=== PATIENT | female | born 1940 | race Caucasian/White ===

== ENCOUNTER 2020-05-04 19:30 | Emergency (ER) | payer MEDICARE ==
[~2020-05-04] VITALS: Ht 167.6 cm; Wt 65.9 kg
--- NOTE | 2020-05-04 19:50 | PHYS DOC ---
Past History Past Medical History: A-Fib, Anxiety, Arthritis, Heart Disease, Other Past Medical History Vertigo Past Surgical History: Lumbar Laminectomy General Adult EDM: Chief Complaint: DIZZY/LIGHT HEADED HPI: HPI: ".. I had some dizzy .. I have vertigo.. all the time.. this just seemed different tonight... seem to have some 'prickle' like feeling around this Lt. eye...".." I just want to come in and get checked out..."..." I ve had some health issues.. mainly the my back.. and eventually had complete lumbar and sacral fusion.. at [facility].. I ve had Afib.. in the past..they only keep me on Aspirin.. because risk of fall.. you see I got weakness in this Rt. leg.. from the back thing.. so I have to use a cane.. I ve been doing the physical therapy with my Vertigo..now mainly at home..." Patient is a 80 year old female who presents with above hx and complaints of dizzy, vertigo that is somewhat similar to prior episodes. Pt. denies any other neuro changes, except prickle feeling around Lt. eye. Pt. states symptoms have been present since 3:00 yesterday morning. Patient denies any changes in medications. No recent travel outside the [place] area. No history of specific ill contacts. No history of recent falls. Patient has a chronic history of vertigo, lumbar sacral neuropathy, gait disorder, A. fib, arthritis, history of coronary artery disease. The patient follows with Dr. Clay Review of Systems: Review of Systems: Constitutional: Denies fever or chills Eyes: Denies change in visual acuity HENT: Denies nasal congestion or sore throat Respiratory: Denies cough or shortness of breath Cardiovascular: Denies chest pain or edema GI: Denies abdominal pain, nausea, vomiting, bloody stools or diarrhea : Denies dysuria Musculoskeletal: Denies back pain or joint pain Integument: Denies rash Neurologic: Denies headache, focal weakness or sensory changes . Complains of increased vertigo and " prickle" sensation around Lt. eye since 0300 am Endocrine: Denies polyuria or polydipsia Lymphatic: Denies swollen glands Psychiatric: Denies depression or anxiety Family History: Family History: Noncontributory presentation Current Medications: Current Meds: See nursing for home meds Allergies: Allergies: No known drug allergies Physical Exam: PE: Constitutional: no acute distress, non-toxic appearance. [] HENT: Normocephalic, atraumatic, bilateral external ears normal, oropharynx moist, no oral exudates, nose normal. [] Eyes: PERRLA, EOMI, conjunctiva normal, no discharge. [] Neck: Normal range of motion, no tenderness, supple, no stridor. [] Cardiovascular:Heart rate regular rhythm, no murmur, PMI to the left Lungs & Thorax: Bilateral breath sounds clear to auscultation [] Abdomen: Bowel sounds normal, soft, no tenderness, no masses, no pulsatile m asses. Old surgery scar] Skin: Warm, dry, no erythema, no rash. Poor turgor Back: No tenderness, no CVA tenderness. Lumbar sacral scar Extremities: No tenderness, no cyanosis, no clubbing, ROM intact, no edema. [] Atrophy of muscle groups right thigh Neurologic: Alert and oriented X 3, normal motor function, normal sensory function, no focal deficits noted. [] DTRs +2 at patella and brachial. 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 Right-hand dominant. Distal vibratory 128 intact. Does wear bilateral hearing aids air conduction more than bone conduction some lateralization to the right. Patient walks with a cane for stability. Psychologic: Affect anxious , judgement normal, mood normal. [] EKG: EKG: My interpretation EKG shows a sinus rhythm at 65 bpm. No acute morphology [] Radiology/Procedures: Radiology/Procedures: [address] [address] IMAGING REPORT Signed PATIENT: SAMIRA FELIZ ACCOUNT: [id number] : 1940 LOCATION: ER AGE: 80 SEX: F EXAM STATUS: REG ER ORD. PHYSICIAN: TREE VASQUEZ MD REASON: prickle Lt eye, dizzy, vertigo- different PROCEDURE: CT HEAD WO CONTRAST CT head without contrast dated 05/04/2020. No comparison available. CLINICAL INDICATION: Left pain and dizziness with vertigo. TECHNIQUE: Contiguous axial imaging of the head was performed from skull base to vertex. No contrast administered. One or more of the following individualized dose reduction techniques were utilized for this examination: 1. Automated exposure control 2. Adjustment of the mA and/or kV according to patient size 3. Use of iterative reconstruction technique. FINDINGS: Ventricles and sulci are mildly prominent for age. No midline shift or mass effect. Brain parenchyma is of normal attenuation. No hemorrhage or extra-axial collection. Posterior fossa and brainstem unremarkable. There is some atherosclerotic calcifications of the parasellar carotid arteries and right vertebral artery. Visualized paranasal sinuses and mastoid air cells are clear. No apparent calvarial abnormality. IMPRESSION: No evidence of acute intracranial abnormality. Electronically signed by: Yared Reina MD (05/04/2020 8:30 PM) [facility]US[facility] DICTATED AND SIGNED BY: YARED REINA MD DATE: 05/04/202029 CC: TREE VASQUEZ MD; SHARRI SANDY [][place] [address] IMAGING REPORT Signed PATIENT: SAMIRA FELIZ ACCOUNT: [id number] : 1940 LOCATION: ER AGE: 80 SEX: F EXAM STATUS: REG ER ORD. PHYSICIAN: TREE VASQUEZ MD REASON: dyspnea, afib, ms change PROCEDURE: CHEST PA & LATERAL Two-view chest dated 05/04/2020. Comparison made to 04/14/2010 CLINICAL INDICATION: Dyspnea. FINDINGS: PA and lateral views obtained. Heart and mediastinal contours are stable. Lungs are clear. No consolidation or pleural effusion. No pneumothorax. There are a few scattered calcified granuloma. IMPRESSION: No acute radiographic abnormality. Electronically signed by: Yared Reina MD (05/04/2020 9:29 PM) [facility] DICTATED AND SIGNED BY: YARED REINA MD DATE: 05/04/202128 CC: TREE VASQUEZ MD; SHARRI SANDY Heart Score: Risk Factors: Risk Factors: DM, Current or recent (<one month) smoker, HTN, HLP, family history of CAD, obesity. Risk Scores: Score 0 - 3: 2.5% MACE over next 6 weeks - Discharge Home Score 4 - 6: 20.3% MACE over next 6 weeks - Admit for Clinical Observation Score 7 - 10: 72.7% MACE over next 6 weeks - Early Invasive Strategies Course & Med Decision Making: Course & Med Decision Making Pertinent Labs and Imaging studies reviewed. (See chart for details) Stay with someone to check on your well being tonight. Take meds as previously directed.. Return if any concerns. Follow up with Dr. Hyman and review ED work up. 1. Exacerbation of Vertigo symptoms [] Dragon Disclaimer: Dragon Disclaimer: This electronic medical record was generated, in whole or in part, using a voice recognition dictation system. Departure Departure: Referrals: SHARRI SANDY (PCP) TREE VASQUEZ MD May 04, 2020 19:50
--- NOTE | 2020-05-04 20:33 | RAD ---
CT head without contrast dated 05/04/2020. No comparison available. CLINICAL INDICATION: Left pain and dizziness with vertigo. TECHNIQUE: Contiguous axial imaging of the head was performed from skull base to vertex. No contrast administered. One or more of the following individualized dose reduction techniques were utilized for this examination: 1. Automated exposure control 2. Adjustment of the mA and/or kV according to patient size 3. Use of iterative reconstruction technique. FINDINGS: Ventricles and sulci are mildly prominent for age. No midline shift or mass effect. Brain parenchyma is of normal attenuation. No hemorrhage or extra-axial collection. Posterior fossa and brainstem unremarkable. There is some atherosclerotic calcifications of the parasellar carotid arteries and right vertebral artery. Visualized paranasal sinuses and mastoid air cells are clear. No apparent calvarial abnormality. IMPRESSION: No evidence of acute intracranial abnormality. Electronically signed by: Yared Reina MD (05/04/2020 8:30 PM) HOLLY
--- NOTE | 2020-05-04 20:49 | EKG ---
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
[2020-05-04 21:09] LABS: CALCIUM 9.5 mg/dL (8.5-10.1); CREATININE 1.1 mg/dL (0.6-1.0); POTASSIUM 3.5 mmol/L (3.5-5.1)
[2020-05-04 21:11] LABS: BASO % 0 % (0-3); EOS # 0.1 x10^3/uL (0.0-0.7); EOS % 2 % (0-3); HEMATOCRIT 42.2 % (36.0-47.0); HEMOGLOBIN 13.9 g/dL (12.0-15.5); LYMPH # 1.7 x10^3/uL (1.0-4.8); LYMPH % 31 % (24-48); MEAN CORPUSCULAR HEMOGLOBIN 31 pg (25-35); MEAN CORPUSCULAR HGB CONC 33 g/dL (31-37); MEAN CORPUSCULAR VOLUME 94 fL (79-100); MONO # 0.5 x10^3/uL (0.0-1.1); MONO % 9 % (0-9); NEUT # 3.3 x10^3uL (1.8-7.7); NEUT % 59 % (31-73); PLATELET COUNT 250 x10^3/uL (140-400); RED BLOOD COUNT 4.47 x10^6/uL (3.50-5.40); RED CELL DISTRIBUTION WIDTH 14.9 % (11.5-14.5); WHITE BLOOD COUNT 5.5 x10^3/uL (4.0-11.0)
[2020-05-04 21:17] LABS: BARBITURATES NEG (NEG); BENZODIAZEPINES NEG (NEG); CANNABINOIDS NEG (NEG); COCAINE NEG (NEG); METHADONE NEG (NEG); OPIATES NEG (NEG); PHENCYCLIDINE NEG (NEG)
[2020-05-04 21:21] LABS: AMPHETAMINE/METHAMPHETAMINE NEG (NEG)
[2020-05-04 21:31] LABS: BACTERIA,URINE 0 /HPF (0-FEW); BILIRUBIN,URINE NEG (NEG); CLARITY,URINE CLEAR; COLOR,URINE YELLOW; GLUCOSE,URINE NEG (NEG); NITRITE,URINE NEG (NEG); RBC,URINE 0 /HPF (0-2); SQUAMOUS EPITHELIAL CELL,UR FEW /LPF; UROBILINOGEN,URINE 0.2 mg/dL (0.2 mg/dL)
--- NOTE | 2020-05-04 21:31 | RAD ---
Two-view chest dated 05/04/2020. Comparison made to 04/14/2010 CLINICAL INDICATION: Dyspnea. FINDINGS: PA and lateral views obtained. Heart and mediastinal contours are stable. Lungs are clear. No consolidation or pleural effusion. No pneumothorax. There are a few scattered calcified granuloma. IMPRESSION: No acute radiographic abnormality. Electronically signed by: Yared Reina MD (05/04/2020 9:29 PM) MEGHAN
[2020-05-04 22:02] VITALS: BP 116/62
== END 2020-05-04 22:04 | disposition home or self-care (01) ==
LOC: ER 19:30
DX: R42 Dizziness and giddiness (principal); I48.91 Unspecified atrial fibrillation; F41.9 Anxiety disorder, unspecified; M19.90 Unspecified osteoarthritis, unspecified site
CPT/HCPCS: 36415; 70450; 71046; 80048; 80307; 81001; 82550; 83735; 83880; 84484; 85025; 85610; 85730; 86140; 93005; 99285-25

== ENCOUNTER 2020-11-15 11:37 | Inpatient (IN) | payer MEDICARE ==
[~2020-11-15] VITALS: Ht 170.2 cm; Wt 82.3 kg
[2020-11-15] MEDS ORDERED: ONDANSETRON PF 4 MG/2 ML VIAL. ONE (11:59)
--- NOTE | 2020-11-15 12:26 | PHYS DOC ---
Past History Past Medical History: A-Fib, Anxiety, Arthritis, Heart Disease, Other Additional Past Medical Histor: Nerver, vertigo (PITA KEN APRN) Past Surgical History: Lumbar Laminectomy Additional Past Surgical Histo: Back fussions (PITA KEN APRN) Alcohol Use: None (PITA EKN APRN) General Adult EDM: Chief Complaint: FEVER HPI: HPI: Patient is a 80-year-old female presents with fever, nausea and vomiting. Patient states that she was seen by her physician on for a urinary tract infection and placed on Bactrim. Patient reports that she started vomiting Tuesday afternoon and has not been able to keep down her medications. Patient reports running 102 fever prior to arrival to the emergency room and took Tylenol. Patient still having burning with urination but states she has only been able to take 1 Bactrim due to vomiting. Denies diarrhea, shortness of breath, chest pain. (PITA KEN APRN) Review of Systems: Review of Systems: Constitutional: Reports fever and chills Eyes: Denies change in visual acuity HENT: Denies nasal congestion or sore throat Respiratory: Denies cough or shortness of breath Cardiovascular: Denies chest pain or edema GI: Denies abdominal pain, diarrhea. Reports nausea and vomiting. : Denies dysuria Musculoskeletal: Denies back pain or joint pain Integument: Denies rash Neurologic: Reports headache.denies focal weakness or sensory changes Endocrine: Denies polyuria or polydipsia Lymphatic: Denies swollen glands Psychiatric: Denies depression or anxiety (PITA KEN APRN) Current Medications: Current Meds: Current Medications Medications (Trade) Dose Ordered Sig/Anisa Start Time Stop Time Status Last Admin Dose Admin Ondansetron HCl (Zofran) 4 mg 1X ONCE 11/15/20 12:30 11/15/20 12:31 UNV 11/15/20 12:20 4 MG Sodium Chloride 1,000 ml @ 1,000 mls/hr 1X ONCE 11/15/20 12:30 11/15/20 13:29 UNV 11/15/20 12:20 1,000 MLS/HR (PITA KEN APRN) Allergies: Allergies: Allergies Coded Allergies Type Severity Reaction Last Updated Verified No Known Drug Allergies 05/04/20 No (PITA KEN APRN) Physical Exam: PE: Constitutional: Well developed, well nourished, no acute distress, non-toxic appearance. [] HENT: Normocephalic, atraumatic, bilateral external ears normal, oropharynx moist, no oral exudates, nose normal. [] Eyes: PERRLA, EOMI, conjunctiva normal, no discharge. [] Neck: Normal range of motion, no tenderness, supple, no stridor. [] Cardiovascular:Heart rate regular rhythm, no murmur [] Lungs & Thorax: Bilateral breath sounds clear to auscultation [] Abdomen: Bowel sounds normal, soft, no tenderness, no masses, no pulsatile masses. [] Skin: Warm, dry, no erythema, no rash. [] Back: No tenderness, no CVA tenderness. [] Extremities: No tenderness, no cyanosis, no clubbing, ROM intact, no edema. [] Neurologic: Alert and oriented X 3, normal motor function, normal sensory function, no focal deficits noted. [] Psychologic: Affect normal, judgement normal, mood normal. [] (PITA KEN APRN) Current Patient Data: Vital Signs: Vital Signs Date Time Temp Pulse Resp B/P (MAP) Pulse Ox O2 Delivery O2 Flow Rate FiO2 11/15/20 11:37 98.9 67 30 74/49 (57) 97 Room Air (PITA KEN APRN) EKG: EKG: [] Sinus rhythm. Heart rate 69 bpm minute. (PITA KEN APRN) Radiology/Procedures: Radiology/Procedures: []CT head without contrast PQRS statement: CT scans at this facility use dose reduction including either automated exposure control, iterative reconstructions, and /or weight based radiation dosing via mA and kV modification when appropriate to reduce radiation dose to as low as reasonably achievable. HISTORY: Hypotension. No other clinical history provided. COMPARISON: CT head May 04, 2020. FINDINGS: Mild generalized brain atrophy with prominence of the ventricles and sulci is stable. No intracranial hemorrhage, mass, hydrocephalus, extra-axial fluid collections or infarction. Density from calcified plaque right vertebral artery stable. Orbits, mastoids and bones are unremarkable. IMPRESSION: No acute abnormality. Stable exam. Electronically signed by: Dominick Shafer MD (11/15/2020 4:29 PM) [id number] (PITA KEN APRN) Heart Score: C/O Chest Pain: No Risk Factors: Risk Factors: DM, Current or recent (<one month) smoker, HTN, HLP, family history of CAD, obesity. Risk Scores: Score 0 - 3: 2.5% MACE over next 6 weeks - Discharge Home Score 4 - 6: 20.3% MACE over next 6 weeks - Admit for Clinical Observation Score 7 - 10: 72.7% MACE over next 6 weeks - Early Invasive Strategies (PITA KEN APRN) Course & Med Decision Making: Course & Med Decision Making Pertinent Labs and Imaging studies reviewed. (See chart for details) [] 80-year-old female presents with fever, nausea and vomiting, headache since Tuesday. Patient was seen by her PCP on and treated with Bactrim for a UTI. Patient states she is only able to take 1 dose of her antibiotics due to vomiting. Patient given normal saline bolus, Zofran and Toradol in the emerge ncy room for fever and nausea. Urine was positive for leuks and WBCs. Troponin is negative. Lactic is 1.1. WBC is 7.7. Patient's creatinine is elevated at 1.7. Patient given second liter of normal saline bolus. Patient's blood pressure dropped down into the 60s. Patient given third liter of fluids. Patient's blood pressure has maintained in the 90s. Patient given Rocephin to treat infection. CT of head was ordered which was negative. Chest x-ray ordered but waiting on results. Spoke with Dr. Souza about accepting patient at [facility] and is willing to accept patient. Patient is alert and oriented and is okay with admission plan. (PITA KEN APRN) Course & Med Decision Making I oversaw on the above date of service of this patient and discussed the care with the HAND SANDER. I personally saw patient and repeated certain aspects of history and physical examination. She is not safe for discharge home, MAP >65 but remains hypotensive and unstable on feet. Will require hospital admission for continued inpatient medical management. I agree with the findings, plan of care, and disposition as documented. Electronically signed, Esha Rich DO (ESHA RICH DO) Roseline Disclaimer: Roseline Disclaimer: This electronic medical record was generated, in whole or in part, using a voice recognition dictation system. (PITA KEN APRN) Departure Departure: Impression: Primary Impression: Urinary tract infection Qualified Codes: N30.00 - Acute cystitis without hematuria Disposition: HOME / SELF CARE / HOMELESS Admitting Physician: Erasmo Souza (ESHA RICH DO) Condition: STABLE Referrals: SHARRI SANDY (PCP) Patient Instructions: Urinary Tract Infection PITA KEN APRN November 15, 2020 12:26 ESHA RICH DO November 16, 2020 15:45
[2020-11-15] MEDS ORDERED: KETOROLAC 15 MG/ML VIAL. IVP ONE (12:30)
[2020-11-15] MEDS ORDERED: IV NORMAL SALINE 1,000ML 1,000 ML IV ONE ×2 (12:30→13:00)
[2020-11-15] MEDS ORDERED: ONDANSETRON PF 4 MG/2 ML VIAL. IVP ONE (12:30)
[2020-11-15 12:37] LABS: BASO % 0 % (0-3); CALCIUM 8.7 mg/dL (8.5-10.1); CREATININE 1.7 mg/dL (0.6-1.0); EOS # 0.1 x10^3/uL (0.0-0.7); EOS % 2 % (0-3); GFR 29.1; HEMATOCRIT 37.1 % (36.0-47.0); HEMOGLOBIN 12.6 g/dL (12.0-15.5); LYMPH # 0.3 x10^3/uL (1.0-4.8); LYMPH % 4 % (24-48); MEAN CORPUSCULAR HEMOGLOBIN 31 pg (25-35); MEAN CORPUSCULAR HGB CONC 34 g/dL (31-37); MEAN CORPUSCULAR VOLUME 92 fL (79-100); MONO # 0.5 x10^3/uL (0.0-1.1); MONO % 6 % (0-9); NEUT # 6.7 x10^3uL (1.8-7.7); NEUT % 88 % (31-73); PLATELET COUNT 184 x10^3/uL (140-400); POTASSIUM 3.4 mmol/L (3.5-5.1); RED BLOOD COUNT 4.02 x10^6/uL (3.50-5.40); RED CELL DISTRIBUTION WIDTH 15.5 % (11.5-14.5); WHITE BLOOD COUNT 7.7 x10^3/uL (4.0-11.0)
--- NOTE | 2020-11-15 12:39 | EKG ---
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
[2020-11-15 12:43] LABS: ALBUMIN 3.6 g/dL (3.4-5.0); ALBUMIN/GLOBULIN RATIO 1.2 (1.0-1.7); TOTAL BILIRUBIN 0.8 mg/dL (0.2-1.0); TOTAL PROTEIN 6.5 g/dL (6.4-8.2)
[2020-11-15 12:46] LABS: BILIRUBIN,URINE NEG (NEG); CLARITY,URINE CLEAR; COLOR,URINE YELLOW; GLUCOSE,URINE NEG (NEG)
[2020-11-15 12:47] LABS: NITRITE,URINE NEG (NEG); UROBILINOGEN,URINE 0.2 mg/dL (0.2 mg/dL)
[2020-11-15 12:48] LABS: BACTERIA,URINE FEW /HPF (0-FEW); SQUAMOUS EPITHELIAL CELL,UR FEW /LPF
--- NOTE | 2020-11-15 16:31 | RAD ---
CT head without contrast PQRS statement: CT scans at this facility use dose reduction including either automated exposure cont rol, iterative reconstructions, and /or weight based radiation dosing via mA and kV modification when appropriate to reduce radiation dose to as low as reasonably achievable. HISTORY: Hypotension. No other clinical history provided. COMPARISON: CT head May 04, 2020. FINDINGS: Mild generalized brain atrophy with prominence of the ventricles and sulci is stable. No in tracranial hemorrhage, mass, hydrocephalus, extra-axial fluid collections or infarction. Density from calcified plaque right vertebral artery stable. Orbits, mastoids and bones are unremarkable. IMPRESSION: No acute abnormality. Stable exam. Electronically signed by: Dominick Shafer MD (11/15/2020 4:29 PM) [id number]
[2020-11-15] MEDS ORDERED: IV NORMAL SALINE 50ML 50 ML ONE (16:48)
[2020-11-15] MEDS ORDERED: cefTRIAXone SODIUM 1 GM VIAL ONE (16:48)
--- NOTE | 2020-11-15 18:19 | RAD ---
XR CHEST 1V Clinical Indication: Reason: hypotension / Spl. Instructions: / History: Comparison: Two-view chest May 04, 2020. Findings: The cardiomediastinal silhouette is normal. Lungs are clear. There is no pneumothorax. No pleural eff usion is appreciated. There is advanced arthropathy of the shoulders. Degenerative endplate spurring of the thoracic spine. IMPRESSION: No acute cardiopulmonary process. Electronically signed by: Seven Alvarez MD (11/15/2020 6:17 PM) [facility]
--- NOTE | 2020-11-15 19:27 | NUR ---
The patient, SAMIRA FELIZ, 80 y/o, F admitted by QUAN WATERMAN MD, to room 107, was given written information regarding hospital policies, unit procedures and contact persons. Valuables were checked and left with the patient.
[2020-11-15 20:45] VITALS: BP 111/56
[2020-11-15] MEDS ORDERED: TRIA1TAB3 PO (20:55)
[2020-11-15] MEDS ORDERED: DILT180C30 PO (20:55)
[2020-11-15] MEDS ORDERED: GABA-586 (20:55)
[2020-11-15] MEDS ORDERED: ATOR20TA58 PO (20:55)
[2020-11-15] MEDS ORDERED: FOLI0.8T5 (20:55)
[2020-11-15] MEDS ORDERED: METH2.5T PO (20:55)
[2020-11-15] MEDS ORDERED: SERT-268 PO (20:55)
[2020-11-15] MEDS ORDERED: FLEC100T (20:55)
[2020-11-15] MEDS ORDERED: METF500T16 PO (20:55)
[2020-11-15] MEDS ORDERED: MELO15TA23 PO (20:55)
[2020-11-15] MEDS: IV NORMAL SALINE 1,000ML 1,000 ML IV SCH (22:15)
[2020-11-15] MEDS ORDERED: DEXTROSE 50% 25 GM / 50ML DISP.SYRIN. IV PRN (22:15)
[2020-11-15 23:53] VITALS: BP 106/61
[2020-11-16] MEDS ORDERED: FAMO10TA26 PO (00:26)
[2020-11-16] MEDS ORDERED: POLY17PO5 PO (00:26)
--- NOTE | 2020-11-16 02:09 | NUR ---
Pt states she lives at home alone. Her daughter lives next door and checks on her sometimes. Pt states she fell a week ago while in the laundry room, bumping her head because she felt "off balance" which is frequent. She uses a walker at times to feel more secure. She described waking up on the floor on Tuesday, thinking she was in her bed and realized that she had not done "any of the things I do before bedtime." She described having vivid "dreams or hallucinations," and does not remember anything that happened around that incident.
[2020-11-16] MEDS: IV NORMAL SALINE 1,000ML 1,000 ML IV SCH ×2 (04:55→12:35)
[2020-11-16 05:38] VITALS: BP 134/73
[2020-11-16] MEDS: INSULIN LISPRO 300 UNITS/3 ML VIAL. SQ SCH ×3 (08:00→17:00)
[2020-11-16 08:20] LABS: CREATININE 1.1 mg/dL (0.6-1.0); POTASSIUM 3.7 mmol/L (3.5-5.1)
[2020-11-16] MEDS: PANTOPRAZOLE IV 40 MG VIAL. IVP SCH (09:06)
[2020-11-16] MEDS: ONDANSETRON PF 4 MG/2 ML VIAL. IVP PRN ×2 (09:25→17:32)
[2020-11-16 11:11] VITALS: BP 145/77
[2020-11-16 15:54] VITALS: BP 144/62
--- NOTE | 2020-11-16 16:54 | HP ---
ADMIT DATE: 11/15/2020 HISTORY OF PRESENT ILLNESS: The patient is a 80-year-old female patient who presented to the Emergency Room with fever, nausea, and vomiting. She stated that she was seen by her primary care physician on for a urinary tract infection and was placed on Bactrim. She reported that she started vomiting on Tuesday and has not been able to keep down her medication. The patient reported running fever up to 102 Fahrenheit prior to arrival to the Emergency Room, for which she took Tylenol. She continued to have burning sensation with urination and stated that she has only been able to take 1 Bactrim due to vomiting. She denied any diarrhea, shortness of breath, or chest pain. She was extensively evaluated in the Emergency Room. Her white cell count was actually normal. Her chemistry showed that she was dehydrated with a BUN of 30, creatinine of 1.7. Urinalysis showed there was a small amount of leukocyte esterase. There were 11-20 wbc's and 1-2 rbc's and few bacteria. The patient was admitted with urinary tract infection, recurrent bouts of nausea, vomiting, and fever. She was started on IV ceftriaxone and was admitted for inpatient treatment. She is also dehydrated and continued on IV normal saline at 150 mL per hour. She did receive a total of 3 liters of fluid in the Emergency Room. PAST MEDICAL HISTORY: Significant for hypertension, hyperlipidemia, atrial fibrillation, rheumatoid arthritis, and type 2 diabetes mellitus. PAST SURGICAL HISTORY: Significant for tonsillectomy and adenoidectomy, tubal ligation. She has right foot bunion, right rotator cuff repair. She is status post cystocele, rectocele, and she underwent cataract extraction, spinal cord stimulator placement, L3-L4 laminectomy, right hip replacement. ALLERGIES: She has no known drug allergies. MEDICATIONS: She is currently on following medications: She is on methotrexate 10 mg weekly, flecainide 100 mg twice a day for atrial fibrillation, atorvastatin, calcium 20 mg at bedtime, diltiazem 180 mg daily. She is on meloxicam 15 mg daily, gabapentin 300 mg 3 times a day, sertraline 25 mg daily, triamterene/hydrochlorothiazide 37.5/25 one tablet once a day, polyethylene glycol 17 grams daily, famotidine 10 mg daily, metformin 500 mg twice a day, folic acid 0.8 mg daily. FAMILY HISTORY: She has 3 brothers, 1 with complications of ankylosing spondylitis. She has 2 brothers who are alive, one has kidney cancer that has resolved and one has generalized osteoarthritis. Her father at age of 81 because of lung and bladder cancer. Mother at age of 90 because of osteoarthritis, congestive heart failure, and colon cancer. SOCIAL HISTORY: She is , currently lives alone. Her daughter and son-in-law lives next door. She never smoked, drinks alcohol occasionally. Has not used any drugs. She used to be a [employer]. REVIEW OF SYSTEMS: As per history of present illness. PHYSICAL EXAMINATION: VITAL SIGNS: On arrival to the Emergency Room, her heart rate was 59, blood pressure was 100/50, temperature was 98, respiratory rate 20, and oxygen saturation was 99% on room air. HEENT: Examination of the head, eyes, ears, nose, and throat showed normocephalic, atraumatic. NECK: Supple. HEART: Showed normal first and second heart sound. No gallop, rub, or murmur. CHEST: Clear to auscultation, no crepitation or rhonchi. ABDOMEN: Distended, soft, nontender. NEUROLOGIC: She was grossly intact. LABORATORY DATA: Her lab work on admission showed white cell count of 7700, hemoglobin 12.6, hematocrit 37, MCV 92, and platelet count of 182,000 with normal manual differential. Her chemistry showed a serum sodium 140, potassium 3.4, chloride 103, bicarbonate 25, anion gap of 12, BUN 30, creatinine 1.7. Estimated GFR was 29 mL per minute. Her glucose 156, calcium was 8.7. Total bilirubin, AST, ALT, alkaline phosphatase normal. Her total protein was 6.5, albumin was 3.6. Urinalysis showed the urine was yellow, clear with a pH of 6, specific gravity of 1.020. The urine was negative for protein, glucose, ketones, trace of blood, negative for nitrite and there is small amount of leukocyte esterase. There were 1-2 rbc's, 11-20 wbc's, and very few bacteria. ASSESSMENT: Urinary tract infection with recurrent bouts of nausea and vomiting. The patient was started on IV fluid, IV ceftriaxone together with insulin sliding scale and IV Protonix. We will reconcile all her medications. I will hold the meloxicam as well as triamterene and we will continue with IV fluid, continue with IV antibiotic. We will monitor all her labs closely and adjust medication accordingly. YESSI/JERMAINE DR: Marsha TID: [id number]
[2020-11-16] MEDS: metFORMIN 500 MG TABLET PO SCH (17:20)
[2020-11-16 19:06] VITALS: BP 118/68
[2020-11-16] MEDS ORDERED: BENZOCAINE/MENTHOL LOZNGE 18'S BOX. PO PRN (20:45)
[2020-11-16] MEDS: FLECAINIDE 50 MG TABLET. PO SCH (21:00)
[2020-11-16] MEDS: ATORVASTATIN CALCIUM 20 MG TABLET PO SCH (21:18)
[2020-11-16] MEDS: LACTOBACILLUS RHAMNOSUS GG 1 CAPSULE. PO SCH (21:18)
[2020-11-16] MEDS: GABAPENTIN 300 MG CAPSULE. PO SCH (21:18)
[2020-11-16] MEDS: POLYVINYL ALCOHOL 1.4% OPHTH SOLUTION 15ML BOTTLE. OU PRN (21:19)
[2020-11-16 23:06] VITALS: BP 128/65
[2020-11-17] MEDS: IV NORMAL SALINE 1,000ML 1,000 ML IV SCH ×3 (00:20→21:36)
--- NOTE | 2020-11-17 00:51 | PN ---
DATE: 11/16/2020 SUBJECTIVE: The patient is resting slightly propped up in bed, in no apparent distress. She is feeling generally better. She has had no more nausea or vomiting. OBJECTIVE: GENERAL: She is afebrile when I examined her this afternoon. She looked well and was clearly in no apparent respiratory distress. No pallor, jaundice, cyanosis, or thyromegaly. No jugular venous distention. No limb edema. VITAL SIGNS: Her heart rate was 65, blood pressure was 145/77, temperature was 98.5, respiratory rate was 18 and oxygen saturation was 98% on room air. HEAD, EYES, EARS, NOSE AND THROAT: Normocephalic, atraumatic. NECK: Supple. HEART: Showed normal first and second heart sounds. No gallop or murmur. CHEST: Clear to auscultation, no crepitation or rhonchi. ABDOMEN: Distended, soft, nontender. NEUROLOGIC: She was grossly intact. LABORATORY DATA: Her lab work this morning showed her serum sodium was 144, potassium 3.7, chloride 111, bicarbonate 23, anion gap of 10, BUN 18 and creatinine 1.1, down from 30 and 1.7. Her glucose was 99, calcium was 8. Her white cell count was 7700, hemoglobin 13, hematocrit 37, MCV 92, platelet count of 184,000. ASSESSMENT: 1. Urinary tract infection with nausea and vomiting, resolving. 2. Acute kidney injury, resolving. 3. The patient is known to have rheumatoid arthritis. The patient is on methotrexate and meloxicam. 4. Atrial fibrillation, for which she is on Diltiazem and flecainide. 5. Hyperlipidemia, for which she is on atorvastatin. 6. Type 2 diabetes mellitus, for which is on metformin and insulin sliding scale. PLAN: Plan is to hold meloxicam as well as triamterene/hydrochlorothiazide and continue with all other medications and continue IV fluids. Continue with IV ceftriaxone. We will repeat her labs again tomorrow. Advance her diet as tolerated. KAVEH DR: Marsha TID: [id number]
[2020-11-17 05:21] VITALS: BP 129/71
--- NOTE | 2020-11-17 05:26 | NUR ---
Pt slept well throughout the night and states she feels better this am. X1 standby assist while getting up to bathroom. Pt uses walker and does well, but states that since her spinal surgery, she gets a little off balance at times, so staying with pt while up. Pt calls for assistance appropriately. Pt denies any dizziness when up. Status unchanged throughout the night.
[2020-11-17 06:27] LABS: BASO % 0 % (0-3); EOS # 0.3 x10^3/uL (0.0-0.7); EOS % 7 % (0-3); HEMATOCRIT 32.5 % (36.0-47.0); HEMOGLOBIN 10.9 g/dL (12.0-15.5); LYMPH # 0.9 x10^3/uL (1.0-4.8); LYMPH % 23 % (24-48); MEAN CORPUSCULAR HEMOGLOBIN 31 pg (25-35); MEAN CORPUSCULAR HGB CONC 34 g/dL (31-37); MEAN CORPUSCULAR VOLUME 93 fL (79-100); MONO # 0.4 x10^3/uL (0.0-1.1); MONO % 10 % (0-9); NEUT # 2.4 x10^3uL (1.8-7.7); NEUT % 60 % (31-73); PLATELET COUNT 172 x10^3/uL (140-400); RED BLOOD COUNT 3.49 x10^6/uL (3.50-5.40); RED CELL DISTRIBUTION WIDTH 15.7 % (11.5-14.5)
[2020-11-17] MEDS: INSULIN LISPRO 300 UNITS/3 ML VIAL. SQ SCH ×3 (08:00→17:00)
[2020-11-17] MEDS ORDERED: MELOXICAM 15 MG TABLET. PO SCH (09:00)
[2020-11-17] MEDS ORDERED: METHOTREXATE SODIUM 2.5 MG TABLET PO SCH (09:00)
[2020-11-17] MEDS: FLECAINIDE 50 MG TABLET. PO SCH ×2 (09:00→20:38)
[2020-11-17] MEDS ORDERED: TRIAMTERENE/HCTZ 37.5/25MG TABLET. PO SCH (09:00)
[2020-11-17] MEDS: LACTOBACILLUS RHAMNOSUS GG 1 CAPSULE. PO SCH ×2 (09:04→20:38)
[2020-11-17] MEDS: PANTOPRAZOLE IV 40 MG VIAL. IVP SCH (09:04)
[2020-11-17] MEDS: GABAPENTIN 300 MG CAPSULE. PO SCH ×3 (09:04→20:38)
[2020-11-17] MEDS: metFORMIN 500 MG TABLET PO SCH ×2 (09:05→17:10)
[2020-11-17] MEDS: SERTRALINE 25 MG TABLET. PO SCH (09:06)
[2020-11-17] MEDS: FAMOTIDINE 20 MG TABLET PO SCH (09:07)
[2020-11-17] MEDS: FOLIC ACID 1 MG TABLET PO SCH (09:07)
[2020-11-17] MEDS: POLYETHYLENE GLYCOL 3350 17 GM PACKET. PO SCH (09:08)
[2020-11-17 10:25] VITALS: BP 127/68
[2020-11-17 15:30] VITALS: BP 113/69
[2020-11-17] MEDS: POLYVINYL ALCOHOL 1.4% OPHTH SOLUTION 15ML BOTTLE. OU PRN (17:10)
[2020-11-17 19:46] VITALS: BP 128/71
[2020-11-17] MEDS: ATORVASTATIN CALCIUM 20 MG TABLET PO SCH (20:38)
[2020-11-17 22:50] VITALS: BP 130/63
--- NOTE | 2020-11-17 23:43 | PN ---
DATE: 11/17/2020 SUBJECTIVE: The patient is resting, slightly propped up in bed, in no apparent distress. She is awake, alert, no more nausea or vomiting. She is tolerating her diet, has been up and about. Will continue to be unsteady on her feet. PHYSICAL EXAMINATION: GENERAL: When I examined her, she looked pale, no jaundice, cyanosis or thyromegaly. No jugular distention. No limb edema. VITAL SIGNS: Heart rate was 60, blood pressure is 127/68, temperature was 97.9, respiratory rate was 18 and oxygen saturation was 98%. Examination on room air. HEAD, EYES, EARS, NOSE AND THROAT: Normocephalic, atraumatic. NECK: Supple. HEART: Normal first and second heart sounds, no gallop, murmur. CHEST: Clear to auscultation. No crepitation or rhonchi. ABDOMEN: Distended, soft, nontender. NEUROLOGIC: She is awake, alert, responding appropriately. All cranial nerves intact. She ambulates with a walker, with standby assist. Her intake was 2240, no output was recorded. LABORATORY DATA: This morning is still pending at the time of this dictation. Her white cell count was 4000, hemoglobin 11, hematocrit 33, MCV 93 and platelet count 172,000. Her urine culture and blood cultures are still pending at the time of this dictation. ASSESSMENT: 1. Urinary tract infection with nausea and vomiting, resolved. 2. Acute kidney injury, resolving. 3. The patient is known to have rheumatoid arthritis. The patient is on methotrexate and meloxicam. 4. Atrial fibrillation for which she is on diltiazem and flecainide. 5. Hyperlipidemia for which she is on atorvastatin. 6. Type 2 diabetes mellitus for which she is on insulin sliding scale and metformin. PLAN: To continue holding methotrexate, triamterene, hydrochlorothiazide as well as meloxicam. Continue with IV antibiotic. Continue with pain management. Advance diet as tolerated and start physical and occupational therapy. ALEXANDRE/CHRISTINA DR: Masrha TID: [id number]
[2020-11-18 06:37] VITALS: BP 142/77
[2020-11-18 07:25] LABS: CALCIUM 8.4 mg/dL (8.5-10.1); CREATININE 0.9 mg/dL (0.6-1.0); GFR 60.6; POTASSIUM 3.7 mmol/L (3.5-5.1)
[2020-11-18] MEDS: INSULIN LISPRO 300 UNITS/3 ML VIAL. SQ SCH ×2 (08:00→12:00)
[2020-11-18] MEDS: FOLIC ACID 1 MG TABLET PO SCH (08:46)
[2020-11-18] MEDS: metFORMIN 500 MG TABLET PO SCH (08:46)
[2020-11-18] MEDS: LACTOBACILLUS RHAMNOSUS GG 1 CAPSULE. PO SCH (08:46)
[2020-11-18] MEDS: FAMOTIDINE 20 MG TABLET PO SCH (08:47)
[2020-11-18] MEDS: PANTOPRAZOLE IV 40 MG VIAL. IVP SCH (08:47)
[2020-11-18] MEDS: GABAPENTIN 300 MG CAPSULE. PO SCH ×2 (08:47→14:28)
[2020-11-18] MEDS: SERTRALINE 25 MG TABLET. PO SCH (08:48)
[2020-11-18] MEDS: FLECAINIDE 50 MG TABLET. PO SCH (08:48)
[2020-11-18] MEDS: POLYETHYLENE GLYCOL 3350 17 GM PACKET. PO SCH (08:49)
[2020-11-18 11:00] VITALS: BP 130/73
[2020-11-18] MEDS: IV NORMAL SALINE 1,000ML 1,000 ML IV SCH (13:09)
--- NOTE | 2020-11-18 14:24 | DS ---
HOSPITAL COURSE: The patient is resting, slightly propped up in bed in no apparent distress. She has had no further episodes of nausea and vomiting. She is able to tolerate her food without difficulty. Did complain of some pain in her mouth. She has ulcers on the palate. PHYSICAL EXAMINATION: GENERAL: When I examined her today, she looked well and was clearly in no apparent respiratory distress. No pallor, jaundice, cyanosis, or thyromegaly. No jugular venous distention. No edema. VITAL SIGNS: Her heart rate was 55, blood pressure 130/73, temperature was 98, respiratory rate was 20 and oxygen saturation was 97%. HEENT: Examination of the head, eyes, ears, nose and throat: Normocephalic, atraumatic. The oral cavity showed ulcers on the roof of the palate, and she is also complaining of pain in the back of her throat, although I could not see anything there. NECK: Supple. HEART: Normal first and second heart sounds, no gallop, murmur. CHEST: Clear to auscultation, no crepitation or rhonchi. ABDOMEN: Distended, soft, nontender. NEUROLOGIC: She was grossly intact. Her intake over the last 24 hours was 1000. No output was recorded. LABORATORY DATA: This morning showed a white cell count of 4000, hemoglobin 11, hematocrit 33, MCV 93, and platelet count of 172,000. Her chemistry showed a serum sodium 148, potassium 3.7, chloride 111, bicarbonate 25, anion gap of 12, BUN 9, creatinine 0.9. Estimated GFR was 60 mL per minute. Her glucose 108 and calcium was 8.4. Her urine culture has grown ____ 10,000 colony forming units. Genitourinary ines, not indicative of infection. Blood cultures are so far negative. DISCHARGE MEDICATIONS: She was discharged home to continue on atorvastatin calcium 20 mg at bedtime, diltiazem 180 mg once a day, famotidine 10 mg daily, flecainide 100 mg twice a day, folic acid 800 mcg once a day, gabapentin 300 mg 3 times a day, metformin 500 mg twice a day, methotrexate 10 mg once a week, polyethylene glycol 17 grams daily, sertraline 25 mg once a day and triamterene/hydrochlorothiazide 37.5/25 one tablet once a day. I did advise the patient to discontinue her meloxicam and use perhaps Tylenol Arthritis. FINAL DISCHARGE DIAGNOSES: 1. Acute gastroenteritis. 2. Acute kidney injury. 3. Other medical problems include atrial fibrillation, hypertension, hyperlipidemia, rheumatoid arthritis and type 2 diabetes mellitus. The aphthous stomatitis or ulcerative stomatitis could be a side effect of methotrexate, so I advised her to contact her weatherization technician if the ulcers worsens or she can come to Emergency Room if her symptoms have dramatically worsened. ALEXANDRE/SAM/AISSATOU DR: Marsha TID: [id number]
--- NOTE | 2020-11-18 17:30 | NUR ---
DISCHARGE INSTRUCTIONS REVIEWED WITH PT. EDUCATION MATERIALS AND DISCHARGE INSTRUCTIONS SENT WITH PT. PIV AND TELE REMOVED.
== END 2020-11-18 17:30 | disposition home or self-care (01) | DRG 391 ==
LOC: ER 11:37 → 1 SOUTH 18:06
PROVIDERS: ADMIT Internal Medicine; ATTEND Internal Medicine
DX: K52.9 Noninfective gastroenteritis and colitis, unspecified (principal); N17.0 Acute kidney failure with tubular necrosis; N39.0 Urinary tract infection, site not specified; K12.1 Other forms of stomatitis; E86.0 Dehydration; M19.90 Unspecified osteoarthritis, unspecified site; F41.9 Anxiety disorder, unspecified; I48.91 Unspecified atrial fibrillation; I10 Essential (primary) hypertension; E78.5 Hyperlipidemia, unspecified; M06.9 Rheumatoid arthritis, unspecified; E11.9 Type 2 diabetes mellitus without complications; Z96.641 Presence of right artificial hip joint; Z98.49 Cataract extraction status, unspecified eye; Z80.51 Family history of malignant neoplasm of kidney; Z80.0 Family history of malignant neoplasm of digestive organs; Z80.52 Family history of malignant neoplasm of bladder; Z82.49 Family history of ischemic heart disease and other diseases of the circulatory system
CPT/HCPCS: 36415; 70450; 71045; 80048; 80053; 81001; 82947; 83605; 84484; 85025; 87040; 87086; 93005; 96361; 96365; 96366; 96375; 96376; C9113; J0696; J1815; J1885; J2405; J8610; 97530; 99285-25; J7030

== ENCOUNTER 2021-03-14 14:11 | Inpatient (IN) | payer MEDICARE ==
[~2021-03-14] VITALS: Ht 170.2 cm; Wt 80.0 kg
[~2021-03-14 14:11] MED LIST: ATOR20TA58 PO; DILT180C30 PO; FAMO10TA26 PO; FLEC100T; FOLI0.8T5; GABA-586; MELO15TA23 PO; METF500T16 PO; METH2.5T PO; POLY17PO5 PO; SERT-268 PO; TRIA1TAB3 PO
--- NOTE | 2021-03-14 14:22 | PHYS DOC ---
Past History Past Medical History: A-Fib, Anxiety, Arthritis, Heart Disease, Other Additional Past Medical Histor: Nerver, vertigo, COVID Past Surgical History: Lumbar Laminectomy Additional Past Surgical Histo: Back fussions Alcohol Use: None Adult General Chief Complaint Chief Complaint: ALTERED MENTAL STATUS [facility] HPI Patient is a 81-year-old female presenting for multiple complaints. States she started experiencing UTI symptoms yesterday and subsequently went to her PCP for evaluation. She was diagnosed with a urinary tract infection in prescribed Bactrim. Nonetheless, patient was unable to get this medication filled until this morning. Patient had not taken any of her medication when she attended a and reported feeling feverish and having chills. Patient's daughter reports that patient was also a little more confused than usual which concerned her prompting her to take patient to our ER for evaluation. On arrival, patient continuing to complain of increased urinary frequency and dysuria. Daughter reports temperature was taken prior to arrival and was measured at 102 F and 1 g of Tylenol was administered. Nonetheless, patient has been nauseous and suffered several episodes of nonbloody emesis in the past 3 hours so daughter is unsure if patient was able to feel the effects of the Tylenol. Review of Systems Review of Systems Fourteen body systems of review of systems have been reviewed. See HPI for pertinent positives and negative responses, other lucero all other systems are negative, non-pertinent or non-contributory Allergies Allergies Allergies Coded Allergies Type Severity Reaction Last Updated Verified No Known Drug Allergies 05/04/20 No Physical Exam Physical Exam Constitutional: Age-appropriate, nontoxic in appearance but does appear uncomfortable in bed, has occasional catatonia of unknown etiology HENT: Normocephalic, atraumatic, bilateral external ears normal, oropharynx moist, no oral exudates, nose normal. Eyes: PERRLA, EOMI, conjunctiva normal, no discharge. Neck: Normal range of motion, no tenderness, supple, no stridor. Cardiovascular: Heart rate regular, sinus rhythm, no murmurs rubs or gallops Lungs & Thorax: Bilateral breath sounds clear to auscultation Abdomen: Bowel sounds normal, soft, no tenderness, no masses, no pulsatile masses. Nonsurgical abdomen, no peritoneal signs Skin: Warm, dry, no erythema, no rash. Back: No tenderness, no CVA tenderness. Extremities: No tenderness, no cyanosis, no clubbing, ROM intact, no edema. Neurologic: Alert and oriented X 3, grossly normal motor & sensory function, no focal deficits noted. Psychologic: Anxious affect and mood Current Patient Data Vital Signs Vital Signs Date Time Temp Pulse Resp B/P (MAP) Pulse Ox O2 Delivery O2 Flow Rate FiO2 03/14/21 14:19 103.1 99 22 120/63 (82) 93 Room Air Vital Signs Date Time Temp Pulse Resp B/P (MAP) Pulse Ox O2 Delivery O2 Flow Rate FiO2 03/14/21 14:19 103.1 99 22 120/63 (82) 93 Room Air Lab Results Laboratory Tests Test 03/14/21 14:35 White Blood Count 7.0 x10^3/uL Red Blood Count 4.20 x10^6/uL Hemoglobin 13.2 g/dL Hematocrit 39.6 % Mean Corpuscular Volume 94 fL Mean Corpuscular Hemoglobin 31 pg Mean Corpuscular Hemoglobin Concent 33 g/dL Red Cell Distribution Width 14.5 % Platelet Count 222 x10^3/uL Neutrophils (%) (Auto) 87 % Lymphocytes (%) (Auto) 7 % Monocytes (%) (Auto) 5 % Eosinophils (%) (Auto) 0 % Basophils (%) (Auto) 1 % Neutrophils # (Auto) 6.1 x10^3uL Lymphocytes # (Auto) 0.5 x10^3/uL Monocytes # (Auto) 0.3 x10^3/uL Eosinophils # (Auto) 0.0 x10^3/uL Basophils # (Auto) 0.0 x10^3/uL Sodium Level 140 mmol/L Potassium Level 4.2 mmol/L Chloride Level 104 mmol/L Carbon Dioxide Level 24 mmol/L Anion Gap 12 Blood Urea Nitrogen 23 mg/dL Creatinine 1.2 mg/dL Estimated GFR (Cockcroft-Gault) 43.3 BUN/Creatinine Ratio 19 Glucose Level 146 mg/dL Lactic Acid Level 2.6 mmol/L Calcium Level 9.2 mg/dL Total Bilirubin 0.3 mg/dL Aspartate Amino Transf (AST/SGOT) 28 U/L Alanine Aminotransferase (ALT/SGPT) 32 U/L Alkaline Phosphatase 44 U/L Creatine Kinase 90 U/L Troponin I Quantitative 0.024 ng/mL Total Protein 6.6 g/dL Albumin 3.8 g/dL Albumin/Globulin Ratio 1.4 Current Medications Medications (Trade) Dose Ordered Sig/Anisa Route PRN Reason Start Time Stop Time Status Last Admin Dose Admin Ceftriaxone Sodium 1 gm/ Sodium Chloride 50 ml @ 100 mls/hr 1X ONCE IV 03/14/21 14:30 03/14/21 14:59 DC 03/14/21 15:04 Sodium Chloride 1,000 ml @ 1,000 mls/hr 1X ONCE IV 03/14/21 14:45 03/14/21 15:44 03/14/21 14:59 Sodium Chloride 50 ml @ As Directed STK-MED ONCE .ROUTE 03/14/21 14:55 03/14/21 14:55 DC Ceftriaxone Sodium (Rocephin) 1 gm STK-MED ONCE .ROUTE 03/14/21 14:55 03/14/21 14:55 DC EKG EKG EKG ordered and interpreted by myself at 1450 hrs. as sinus rhythm at 96 bpm, unremarkable intervals, right axis deviation, nonspecific ST wave abnormalities noted in leads III, aVF and V1, suspect ST depression in lead V3, no STEMI Radiology/Procedures Radiology/Procedures XR CHEST 1V History: Reason: SEPSIS / Spl. Instructions: / History: Comparison: November 15, 2020 Findings: No consolidation or pleural effusion. Normal heart size. No pneumothorax. Glenohumeral DJD. Impression: 1. No acute cardiopulmonary process. Electronically signed by: Jorge Smith DO (03/14/2021 3:15 PM) [facility] Heart Score C/O Chest Pain: No HEART Score for Chest Pain: HEART Score for Chest Pain Response (Comments) Value History Slighlty/Non-Suspicious 0 ECG Nonspecific Repolarizatio 1 Age > 65 2 Risk Factors >3 Risk Factors or Hx CAD 2 Troponin < Normal Limit 0 Total 5 Risk Factors: Risk Factors: DM, Current or recent (<one month) smoker, HTN, HLP, family history of CAD, obesity. Risk Scores: Risk Factors: DM, Current or recent (<one month) smoker, HTN, HLP, family history of CAD, obesity. Course & Med Decision Making Course & Med Decision Making Airway patent, breathing unremarkable, IV access and vitals obtained concerning for fever Patient meets sepsis criteria with source being recently diagnosed UTI yesterday. She is taken x1 dose of Macrobid. She took 1 g of Tylenol prior to arrival but unsure of amount absorbed given recent episodes of emesis Patient's condition responded and symptoms improved with provided care in ER that included oxygen given baseline saturations in low 90s, IV fluid rehydration and IV Rocephin Nonetheless joint decision was made between patient and daughter at bedside to admit given fact that patient lives at home and amount of care exceeds available to her at her place of residence I contacted hospitalist and discussed need for hospital admission and he was amenable. I updated patient and daughter on plan of care and they were amenable. All questions and concerns addressed prior to hospital admission Dragon Disclaimer Dragon Disclaimer This electronic medical record was generated, in whole or in part, using a voice recognition dictation system. Departure Departure: Impression: Primary Impression: UTI (urinary tract infection) Additional Impression: Sepsis Disposition: 09 ADMITTED INPATIENT Admitting Physician: Erasmo Souza Condition: STABLE Referrals: SHARRI SANDY (PCP) Problem Qualifiers ESHA RICH DO Mar 14, 2021 14:22
[2021-03-14] MEDS ORDERED: IV NORMAL SALINE 1,000ML 1,000 ML IV ONE ×2 (14:45→16:15)
[2021-03-14] MEDS ORDERED: IV NORMAL SALINE 50ML 50 ML ONE (14:55)
[2021-03-14] MEDS ORDERED: cefTRIAXone SODIUM 1 GM VIAL ONE (14:55)
--- NOTE | 2021-03-14 14:55 | EKG ---
[address] [address] Test Date: 2021-03-14 Test Time: 14:43:48 Pat Name: SAMIRA FELIZ Department: Room: Gender: F Legal Financial Specialist: MICHELLE : 1940 Requested By: ESHA RICH Order Number: [id number] Reading MD: Measurements Intervals Pitcher Rate: 96 P: 56 ME: 164 QRS: 97 QRSD: 96 T: -18 QT: 344 QTc: 441 Interpretive Statements SINUS RHYTHM RIGHTWARD AXIS ST ABNORMALITY, POSSIBLE LATERAL SUBENDOCARDIAL INJURY ABNORMAL ECG RI6.02 No previous ECG available for comparison
[2021-03-14 14:59] LABS: BASO % 1 % (0-3); EOS % 0 % (0-3); HEMATOCRIT 39.6 % (36.0-47.0); HEMOGLOBIN 13.2 g/dL (12.0-15.5); LYMPH # 0.5 x10^3/uL (1.0-4.8); LYMPH % 7 % (24-48); MEAN CORPUSCULAR HEMOGLOBIN 31 pg (25-35); MEAN CORPUSCULAR HGB CONC 33 g/dL (31-37); MEAN CORPUSCULAR VOLUME 94 fL (79-100); MONO # 0.3 x10^3/uL (0.0-1.1); MONO % 5 % (0-9); NEUT # 6.1 x10^3uL (1.8-7.7); NEUT % 87 % (31-73); PLATELET COUNT 222 x10^3/uL (140-400); RED CELL DISTRIBUTION WIDTH 14.5 % (11.5-14.5)
[2021-03-14 15:00] LABS: CALCIUM 9.2 mg/dL (8.5-10.1); CREATININE 1.2 mg/dL (0.6-1.0); GFR 43.3; POTASSIUM 4.2 mmol/L (3.5-5.1)
[2021-03-14 15:06] LABS: ALBUMIN 3.8 g/dL (3.4-5.0); ALBUMIN/GLOBULIN RATIO 1.4 (1.0-1.7); TOTAL BILIRUBIN 0.3 mg/dL (0.2-1.0); TOTAL PROTEIN 6.6 g/dL (6.4-8.2)
--- NOTE | 2021-03-14 15:18 | RAD ---
XR CHEST 1V History: Reason: SEPSIS / Spl. Instructions: / History: Comparison: November 15, 2020 Findings: No consolidation or pleural effusion. Normal heart size. No pneumothorax. Glenohumeral DJD. Impression: 1. No acute cardiopulmonary process. Electronically signed by: Jorge Smith DO (03/14/2021 3:15 PM) [facility]
[2021-03-14] MEDS ORDERED: KETOROLAC 15 MG/ML VIAL. IVP ONE (15:45)
[2021-03-14 16:02] LABS: BILIRUBIN,URINE NEG (NEG); CLARITY,URINE HAZY; COLOR,URINE YELLOW; GLUCOSE,URINE NEG (NEG)
[2021-03-14 16:03] LABS: BACTERIA,URINE FEW /HPF (0-FEW); NITRITE,URINE NEG (NEG); RBC,URINE OCC /HPF (0-2); SQUAMOUS EPITHELIAL CELL,UR OCC /LPF; UROBILINOGEN,URINE 0.2 mg/dL (0.2 mg/dL); WBC,URINE >40 /HPF (0-4)
[2021-03-14] MEDS ORDERED: ONDANSETRON PF 4 MG/2 ML VIAL. IVP PRN (16:15)
[2021-03-14] MEDS ORDERED: MORPHINE SULFATE 2 MG/ML DISP.SYRIN. IVP PRN (16:15)
[2021-03-14] MEDS ORDERED: NITROGLYCERIN SUBLINGUAL 0.4 MG BOTTLE OF 25. SL PRN (16:15)
[2021-03-14 16:52] VITALS: BP 96/57
--- NOTE | 2021-03-14 17:30 | NUR ---
The patient, SAMIRA FELIZ, 81 y/o, F admitted by QUAN WATERMAN MD, was given written information regarding hospital policies, unit procedures and contact persons. Valuables were checked and left with patient at bedside. pt is alert and oriented x 4. pt is febrile upon admission.
--- NOTE | 2021-03-14 18:33 | HP ---
ADMIT DATE: 03/14/2021 HISTORY OF PRESENT ILLNESS: The patient is a 81-year-old female patient who was brought to the Emergency Room of [facility] with multiple complaints. She apparently started experiencing UTI symptoms yesterday and she went to her primary care physician for evaluation. She was diagnosed with UTI and was prescribed Bactrim. Unfortunately, the patient was unable to get this medication yesterday and she took one tablet this morning and went to attend the and reportedly felt feverish and having chills. The patient also is little more confused than usual and has had multiple episodes of nausea, vomiting and shaking chills and therefore, the patient was brought to the Emergency Room for further evaluation. On arrival, she continued to complain of urinary frequency and dysuria. Her temperature prior to arrival was 102 Fahrenheit and she did receive 1 gram of Tylenol. The patient has been nauseous and suffered several episodes of nonbloody emesis in the past 3 hours, so the daughter is unsure if the patient was able to feel the effect of the Tylenol. In any case, the patient was extensively investigated in the Emergency Room and has had lab work, which showed that she is mildly dehydrated. Her lactic acid was slightly elevated at 2.6, although surprisingly, her white cell count was only 7000. Her urinalysis showed the urine was hazy and showed a small amount of leukocyte esterase, occasional rbc's, more than 40 wbc's and few bacteria. Her urine was sent for culture and sensitivity as well as blood was sent for culture and sensitivity and she was empirically treated with IV ceftriaxone as well as IV fluid and was admitted for further evaluation and treatment. PAST MEDICAL HISTORY: Significant for hypertension, hyperlipidemia, atrial fibrillation, rheumatoid arthritis, and type 2 diabetes mellitus. PAST SURGICAL HISTORY: Significant for tonsillectomy and adenoidectomy, tubal ligation. She has right foot bunion, right rotator cuff repair. She is status post cystocele and rectocele repair. She underwent cataract extraction, spinal cord stimulator placement and L3-L4 laminectomy and right hip replacement. ALLERGIES: She has no known drug allergies. MEDICATIONS: She is currently on the following medications: She is on methotrexate 2.5 mg, she takes 10 mg weekly; flecainide 100 mg twice a day; atorvastatin calcium 20 mg at bedtime; diltiazem 180 mg once a day; meloxicam 15 mg daily; gabapentin 300 mg 3 times a day; sertraline 25 mg once a day; triamterene/hydrochlorothiazide 37.5/25 one tablet daily. She is on polyethylene glycol 17 grams 2 times a day, famotidine 10 mg once a day, metformin 500 mg twice a day, folic acid 800 mcg once a day. FAMILY HISTORY: Significant for the fact she has 3 brothers, 1 with complication of ankylosing spondylitis. Has 2 other brothers who are alive, one has kidney cancer that has resolved and one has generalized osteoarthritis. Her father at age of 81 because of lung and bladder cancer. Mother at age of 90 because of osteoarthritis, congestive heart failure and colon cancer. SOCIAL HISTORY: She is , currently lives alone. Her daughter and son-in-law live next door, she knew. She never smoked, drank alcohol occasionally. Has not used any drug. She used to be a [employer]. REVIEW OF SYSTEMS: As per history of present illness. PHYSICAL EXAMINATION: GENERAL: On arrival to the Emergency Room, patient was febrile, somewhat tachypneic, but there was no pallor, jaundice, cyanosis or thyromegaly. No jugular venous distention. No limb edema. VITAL SIGNS: Her heart rate was 99, blood pressure was 120/63, temperature was 103.1, respiratory rate was 22 and oxygen saturation was 93% on room air. HEAD, EYES, EARS, NOSE, AND THROAT: Normocephalic, atraumatic. NECK: Supple. HEART: Showed normal first and second heart sounds. No gallop, rub or murmur. CHEST: Clear to auscultation, no crepitation or rhonchi. ABDOMEN: Distended, soft, nontender, no guarding or rigidity. No organomegaly. All hernial orifices intact. Bowel sounds normal. NEUROLOGIC: She was alert, oriented x 3, with no evidence of sensory or motor dysfunction. BACK: Examination of the back showed no tenderness, no tenderness in the renal angle. PSYCHOLOGIC: Psychologically, she was anxious, has anxious affect and mood. LABORATORY DATA: The patient has had lab work, which showed a white cell count to be 7000, hemoglobin 13, hematocrit 39, MCV 94 and platelet count 222,000. Her chemistry showed a serum sodium 140, potassium 4.2, chloride 104, bicarbonate 24, anion gap of 12, BUN 23, creatinine 1.2. Estimated GFR was 43 mL per minute. Her glucose was 146. Lactic acid was 2.6. Calcium was 9.2. Total bilirubin, AST, ALT, alkaline phosphatase were normal. CK was 90. Total protein 6.6, albumin 3.8. Urinalysis showed the urine was yellow, hazy with a pH of 6, specific gravity of 1.010. There was trace of protein, negative for glucose and ketones, small amount of blood, negative for nitrite, small leukocyte esterase, occasional rbc's, more than 40 wbc's. Her chest x-ray showed no acute cardiopulmonary process. ASSESSMENT AND PLAN: The patient was admitted with urinary tract infection. She was started empirically on IV ceftriaxone. She was given a liter of normal saline, was admitted to continue with IV antibiotic. We will reconcile all her medications. Urine and blood were sent for culture and sensitivity. The antibiotics will be adjusted according to that. ROLA DR: Marsha TID: [id number]
[2021-03-14] MEDS: IV NORMAL SALINE 1,000ML 1,000 ML IV SCH (19:45)
[2021-03-14 20:04] VITALS: BP 92/52
[2021-03-14] MEDS: metFORMIN 500 MG TABLET PO SCH (20:10)
[2021-03-14] MEDS: FAMOTIDINE 20 MG TABLET PO SCH (20:10)
[2021-03-14] MEDS: GABAPENTIN 300 MG CAPSULE. PO SCH (20:10)
[2021-03-14] MEDS: ACETAMINOPHEN 325 MG TABLET PO PRN (20:11)
[2021-03-14] MEDS: ATORVASTATIN CALCIUM 20 MG TABLET PO SCH (20:12)
[2021-03-14] MEDS: FLECAINIDE 50 MG TABLET. PO SCH (21:00)
[2021-03-14 22:02] VITALS: BP 90/56
[2021-03-14 22:41] VITALS: BP 90/52
[2021-03-14 23:46] VITALS: BP 95/53
[2021-03-15] VITALS (7 sets, daily range): BP systolic 90–121; BP diastolic 46–63
[2021-03-15] MEDS: IV NORMAL SALINE 1,000ML 1,000 ML IV SCH ×2 (01:02→13:38)
[2021-03-15] MEDS ORDERED: IV NORMAL SALINE 500ML 500 ML IV ONE ×2 (05:45→12:00)
[2021-03-15 05:58] LABS: BASO % 0 % (0-3); EOS % 0 % (0-3); HEMATOCRIT 34.2 % (36.0-47.0); HEMOGLOBIN 11.4 g/dL (12.0-15.5); LYMPH # 0.7 x10^3/uL (1.0-4.8); LYMPH % 9 % (24-48); MEAN CORPUSCULAR HEMOGLOBIN 32 pg (25-35); MEAN CORPUSCULAR HGB CONC 33 g/dL (31-37); MEAN CORPUSCULAR VOLUME 95 fL (79-100); MONO # 0.5 x10^3/uL (0.0-1.1); MONO % 7 % (0-9); NEUT # 6.1 x10^3uL (1.8-7.7); NEUT % 83 % (31-73); PLATELET COUNT 150 x10^3/uL (140-400); RED CELL DISTRIBUTION WIDTH 14.8 % (11.5-14.5); WHITE BLOOD COUNT 7.4 x10^3/uL (4.0-11.0)
[2021-03-15] MEDS ORDERED: IV NORMAL SALINE 500ML 500 ML IV PRN (06:00)
[2021-03-15 06:15] LABS: ALBUMIN 2.9 g/dL (3.4-5.0); ALBUMIN/GLOBULIN RATIO 1.1 (1.0-1.7); CALCIUM 7.9 mg/dL (8.5-10.1); CREATININE 1.3 mg/dL (0.6-1.0); GFR 39.5; POTASSIUM 3.8 mmol/L (3.5-5.1); TOTAL BILIRUBIN 0.5 mg/dL (0.2-1.0); TOTAL PROTEIN 5.6 g/dL (6.4-8.2)
[2021-03-15] MEDS: FLECAINIDE 50 MG TABLET. PO SCH ×2 (07:30→20:54)
[2021-03-15] MEDS: FOLIC ACID 1 MG TABLET PO SCH (08:12)
[2021-03-15] MEDS: GABAPENTIN 300 MG CAPSULE. PO SCH ×3 (08:12→20:53)
[2021-03-15] MEDS: metFORMIN 500 MG TABLET PO SCH ×2 (08:12→20:53)
[2021-03-15] MEDS: SERTRALINE 50 MG TABLET. PO SCH (08:13)
[2021-03-15] MEDS: POLYETHYLENE GLYCOL 3350 17 GM PACKET. PO SCH (08:13)
[2021-03-15] MEDS: ACETAMINOPHEN 325 MG TABLET PO PRN ×4 (08:18→21:10)
[2021-03-15] MEDS ORDERED: TRIAMTERENE/HCTZ 37.5/25MG TABLET. PO SCH (09:00)
[2021-03-15] MEDS ORDERED: MELOXICAM 15 MG TABLET. PO SCH (09:00)
--- NOTE | 2021-03-15 10:20 | NUR ---
NURSING NOTE PT NAUSEATED AND VOMITING THIS AM, PRN ZOFRAN GIVEN. PT FEELING BETTER NOW. DR ALAN HERE TO ROUND. ARGENIS COMBS.
--- NOTE | 2021-03-15 10:31 | PN ---
DATE: 03/15/2021 ATTENDING PHYSICIAN: Dr. Souza. SUBJECTIVE: The patient is still febrile. She is nauseated, not feeling well. OBJECTIVE FINDINGS: VITAL SIGNS: Blood pressure this morning is 99/51. Her temperature was 103.3 degrees Fahrenheit, oxygen saturation 97% on 1 liter. HEENT: Head is without trauma. Pupils are reactive. Sclerae nonicteric. Oropharynx is clear. NECK: Supple. No bruits identified. LUNGS: Clear. CARDIOVASCULAR: Regular heart tones. ABDOMEN: Soft. EXTREMITIES: Without edema. NEUROLOGIC: Focally intact. Speech is fluent. SKIN: Warm and dry. PERTINENT LABORATORY DATA: Admission hemoglobin was 11.4 grams, white count 7400. Chemistry panel: Creatinine 1.3 mg%. Cultures are pending. ASSESSMENT: 1. A 81-year-old female with urinary tract infection. 2. Dehydration. 3. Nausea, aggravated by nonsteroidal anti-inflammatory drugs. 4. Type 2 diabetes. 5. Hyperlipidemia. 6. Rheumatoid arthritis. 7. Paroxysmal atrial fibrillation. PLAN: 1. Continue antibiotics. 2. Continue IV hydration. 3. Meds were reviewed. I have taken the liberty of holding her meloxicam. We need to continue the flecainide and for now we will stop her Maxzide as well as her diltiazem. ALMAZ/SALMA SERNA: ALMAZ/jarad TID: [id number]
--- NOTE | 2021-03-15 18:00 | NUR ---
NURSING NOTE PT WAS IN THE BED THIS AM UPON ASSESSMENT AND MEDICATION ADMINISTRATION. PT HAD FEVER OFF AND ON THROUGHOUT THE DAY, CURRENTLY 98.5. PT STATES SHE FEELS BETTER THIS AFTERNOON, BUT STILL HAS LINGERING HEADACHE. 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 PT IS STAND BY ASSIST TO RESTROOM. PT CALM AND COOPERATIVE WITH ALL CARES. ARGENIS COMBS.
[2021-03-15] MEDS: FAMOTIDINE 20 MG TABLET PO SCH (20:53)
[2021-03-15] MEDS: LACTOBACILLUS RHAMNOSUS GG 1 CAPSULE. PO SCH (20:53)
[2021-03-15] MEDS: ATORVASTATIN CALCIUM 20 MG TABLET PO SCH (20:54)
[2021-03-16 00:01] VITALS: BP 115/65
[2021-03-16] MEDS: IV NORMAL SALINE 1,000ML 1,000 ML IV SCH ×3 (00:24→21:05)
[2021-03-16 06:19] VITALS: BP 157/80
--- NOTE | 2021-03-16 06:25 | NUR ---
Pt still intermittently febrile, PRN Tylenol given. Pt reports whole body shakes and chills when temp is elevated. Pt up to bathroom with walker x1 assist, tolerating well. Pt did have episode of incontinence this AM, reports she couldn't make it to the bathroom. Pt cleansed, linens and gown changed. Pt denied N/V through shift. Currently sitting up on bedside eating saltines and sipping diet lemon kiana soda. Call light in reach.
[2021-03-16] MEDS: POLYETHYLENE GLYCOL 3350 17 GM PACKET. PO SCH (08:41)
[2021-03-16] MEDS: FLECAINIDE 50 MG TABLET. PO SCH ×2 (08:41→20:39)
[2021-03-16] MEDS: LACTOBACILLUS RHAMNOSUS GG 1 CAPSULE. PO SCH ×2 (08:41→20:38)
[2021-03-16] MEDS: GABAPENTIN 300 MG CAPSULE. PO SCH ×3 (08:42→20:39)
[2021-03-16] MEDS: FOLIC ACID 1 MG TABLET PO SCH (08:42)
[2021-03-16] MEDS: metFORMIN 500 MG TABLET PO SCH ×2 (08:42→20:39)
[2021-03-16] MEDS: SERTRALINE 50 MG TABLET. PO SCH (08:42)
--- NOTE | 2021-03-16 09:03 | PN ---
DATE: 03/16/2021 ATTENDING PHYSICIAN: Dr. Souza. SUBJECTIVE: The patient is up in a chair. She has numerous somatic complaints, some musculoskeletal symptoms, back pain and neck pain. Otherwise, she is stable. Blood pressure had been low yesterday. It is up today. She still has a low-grade fever. Cultures so far have remained negative. Her nausea has improved. OBJECTIVE FINDINGS: VITAL SIGNS: Blood pressure this morning is 157/80, her pulse is 72 and regular, temperature is 100.3 degrees Fahrenheit and her oxygen saturation 92% on room air. HEENT: Head is without trauma. The pupils are reactive. Sclerae nonicteric. Oropharynx clear. NECK: Supple, no bruits. LUNGS: Clear. CARDIOVASCULAR: Regular heart tones. No gallop. ABDOMEN: Soft. EXTREMITIES: Show trace edema. NEUROLOGIC FINDINGS: Focally intact. She is alert. Speech is fluent. There are no focal deficits. SKIN: Warm and dry. LABORATORY STUDIES: Blood cultures so far are negative at 48 hours. I do not have any results of the urine culture. Hemoglobin is 11.4 g. Chemistry shows a creatinine of 1.3 mg/dL. ASSESSMENT: 1. A 81-year-old female with urinary tract infection. 2. Dehydration, rehydrated. 3. Nausea, aggravated by NSAIDs. 4. Type 2 diabetes. 5. Rheumatoid arthritis. 6. Paroxysmal atrial fibrillation. PLAN: 1. Continue antibiotics as ordered. 2. We can discontinue her IV fluids. 3. Nausea control. 4. Mobic has been stopped. 5. We will restart her diltiazem. NIKKI DR: Irvin TID: [id number] CC: SHARRI SANDY
[2021-03-16 11:28] VITALS: BP 150/75
[2021-03-16] MEDS ORDERED: HYDROCORTISONE 1% TOPICAL OINTMENT 30GM TUBE. TP PRN (12:00)
[2021-03-16 15:10] VITALS: BP 122/58
[2021-03-16 18:29] VITALS: BP 148/70
[2021-03-16] MEDS: ACETAMINOPHEN 325 MG TABLET PO PRN (20:38)
[2021-03-16] MEDS: FAMOTIDINE 20 MG TABLET PO SCH (20:38)
[2021-03-16] MEDS: ATORVASTATIN CALCIUM 20 MG TABLET PO SCH (20:39)
[2021-03-16 22:07] VITALS: BP 123/64
[2021-03-17 05:25] VITALS: BP 144/75
[2021-03-17] MEDS: IV NORMAL SALINE 1,000ML 1,000 ML IV SCH (05:45)
[2021-03-17] MEDS: metFORMIN 500 MG TABLET PO SCH ×2 (08:04→21:02)
[2021-03-17] MEDS: LACTOBACILLUS RHAMNOSUS GG 1 CAPSULE. PO SCH ×2 (08:04→21:03)
[2021-03-17] MEDS: SERTRALINE 50 MG TABLET. PO SCH (08:05)
[2021-03-17] MEDS: GABAPENTIN 300 MG CAPSULE. PO SCH ×3 (08:05→21:03)
[2021-03-17] MEDS: FOLIC ACID 1 MG TABLET PO SCH (08:05)
[2021-03-17] MEDS: POLYETHYLENE GLYCOL 3350 17 GM PACKET. PO SCH (08:05)
[2021-03-17] MEDS: FLECAINIDE 50 MG TABLET. PO SCH ×2 (08:06→21:03)
[2021-03-17 11:15] VITALS: BP 120/66
[2021-03-17 11:21] VITALS: BP 120/66
--- NOTE | 2021-03-17 14:01 | PN ---
DATE: 03/17/2021 ATTENDING PHYSICIAN: Dr. Underwood. SUBJECTIVE: The patient is doing better. She is up in a chair. Her appetite is coming back. She is hungry. She is eating independently. OBJECTIVE FINDINGS: VITAL SIGNS: She has been afebrile the last 36 hours. Blood pressure this morning is 123/64 mmHg, pulse is 62 and regular, her oxygen saturation 96% on room air. HEENT: Head is without trauma. Pupils are reactive. Sclerae nonicteric. Oropharynx is clear. NECK: Supple, no bruits identified. LUNGS: Clear to auscultation. CARDIOVASCULAR: Regular heart tones. ABDOMEN: Soft. EXTREMITIES: Without edema. NEUROLOGIC FUNCTION: Focally intact. LABORATORY DATA: Fasting blood sugar this morning was 98 mg/dL. Cultures of blood and urine have remained negative in the last 72 hours. ASSESSMENT: 1. A 81-year-old female with urinary tract infection. 2. Probable systemic inflammatory response syndrome. 3. Dehydration, rehydrated. 4. Nausea, aggravated by NSAIDs. 5. Type 2 diabetes. 6. Rheumatoid arthritis. 7. Paroxysmal atrial fibrillation. PLAN: 1. Discontinue IV fluids. 2. Continue broad-spectrum antibiotics. 3. Tentative discharge plans for tomorrow. 4. NSAIDs have been discontinued. NIKKI DR: Irvin TID: [id number] CC: SHARRI SANDY
[2021-03-17 15:34] VITALS: BP 152/72
--- NOTE | 2021-03-17 18:06 | NUR ---
PT FEELING BETTER TODAY AND EATING BETTER. STILL CONTINUES ON ABX TX. PT DID NOT COMPLAIN OF PAIN TODAY.
[2021-03-17 19:20] VITALS: BP 115/64
[2021-03-17] MEDS: ATORVASTATIN CALCIUM 20 MG TABLET PO SCH (21:03)
[2021-03-17] MEDS: FAMOTIDINE 20 MG TABLET PO SCH (21:03)
[2021-03-17 22:55] VITALS: BP 157/77
[2021-03-18 06:34] VITALS: BP 163/84
[2021-03-18] MEDS: metFORMIN 500 MG TABLET PO SCH (07:41)
[2021-03-18] MEDS: FOLIC ACID 1 MG TABLET PO SCH (07:41)
[2021-03-18] MEDS: GABAPENTIN 300 MG CAPSULE. PO SCH (07:41)
[2021-03-18] MEDS: LACTOBACILLUS RHAMNOSUS GG 1 CAPSULE. PO SCH (07:42)
[2021-03-18] MEDS: POLYETHYLENE GLYCOL 3350 17 GM PACKET. PO SCH (07:42)
[2021-03-18] MEDS: SERTRALINE 50 MG TABLET. PO SCH (07:42)
[2021-03-18] MEDS: FLECAINIDE 50 MG TABLET. PO SCH (07:43)
--- NOTE | 2021-03-18 11:12 | DS ---
DATE OF DISCHARGE: 03/18/2021 ATTENDING PHYSICIAN: Dr. Underwood. FINAL DISCHARGE DIAGNOSES: 1. Urinary tract infection. 2. Systemic inflammatory response syndrome. 3. Dehydration, rehydrated. 4. Nausea aggravated by NSAIDs, resolved. 5. Type 2 diabetes. 6. Rheumatoid arthritis. 7. Paroxysmal atrial fibrillation. HISTORY OF PRESENT ILLNESS: The patient is a very pleasant 81-year-old female with known medical issues. She presented with fevers, chills, temperature up to 103.9 degrees Fahrenheit. She was very sick, weak, and nauseated. She had systemic inflammatory response syndrome related to urinary tract infection. PHYSICAL EXAMINATION: Please see my dictated note. PERTINENT LABORATORY AND X-RAY STUDIES: Cultures of blood and urine remain negative at 72 hours. Admission hemoglobin was 13.2 g/dL, white count 7000. Electrolytes within normal range. Creatinine is 1.3 mg/dL. Blood sugars were drawn, in the low 100s. Transaminases were normal. Cultures once again showed no growth. Chest x-ray was unremarkable. COURSE IN THE HOSPITAL: The patient was admitted. Cultures were pending. She was started on empiric antibiotics. She did well on the Rocephin. Temperature defervesced. She had nausea. I stopped her scheduled Mobic over the course of the next 4 days. She got better. Her abdominal symptom and nausea resolved. By the 5th hospital day, she was alert, eating breakfast independently. She felt well. She was afebrile. She wanted to go home. Therefore, I sent her home with 7 more days of cephalexin 500 mg p.o. t.i.d. Other home meds are unchanged. She will continue her Lipitor, diltiazem, Pepcid, flecainide, folic acid, Neurontin, metformin, methotrexate, Mondays. MiraLax and Zoloft doses unchanged. For now, I took the liberty of stopping her meloxicam and triamterene/hydrochlorothiazide. She will follow up with Dr. Massiel Sandy as scheduled. She was discharged then from our hospital in stable condition with explicit written and followup care. TIME SPENT: Total discharge time spent [address]: Irvin TID: [id number] CC: MASSIEL SANDY
[2021-03-18 12:10] VITALS: BP 124/70
--- NOTE | 2021-03-18 13:05 | NUR ---
PT WHEELED TO THE FRONT BY STAFF. DAUGHTER PICKED UP PT AT THE FRONT. PT HAS BELONGINGS AND DISCHARGE PAPERWORK. PT STABLE.
[2021-03-21] MEDS ORDERED: METHOTREXATE SODIUM 2.5 MG TABLET PO SCH (09:00)
== END 2021-03-18 13:07 | disposition home or self-care (01) | DRG 872 ==
LOC: ER 14:11 → 1 SOUTH 16:15
PROVIDERS: ADMIT Internal Medicine; ATTEND Internal Medicine
DX: A41.9 Sepsis, unspecified organism (principal); N39.0 Urinary tract infection, site not specified; E11.9 Type 2 diabetes mellitus without complications; E78.5 Hyperlipidemia, unspecified; I10 Essential (primary) hypertension; I48.0 Paroxysmal atrial fibrillation; Z96.641 Presence of right artificial hip joint; F41.9 Anxiety disorder, unspecified; M19.90 Unspecified osteoarthritis, unspecified site; E86.0 Dehydration; M06.9 Rheumatoid arthritis, unspecified; Z20.822 Contact with and (suspected) exposure to COVID-19; Z80.52 Family history of malignant neoplasm of bladder; Z82.49 Family history of ischemic heart disease and other diseases of the circulatory system; Z80.51 Family history of malignant neoplasm of kidney; Z80.0 Family history of malignant neoplasm of digestive organs
CPT/HCPCS: 36415; 71045; 80053; 81001; 82550; 82947; 83605; 84484; 85025; 87040; 87086; 87426; 93005; 96365; J0696; J1885; J2405; J7040; U0003; 99285-25; J7030